=== PATIENT | male | born 1960 | race Caucasian/White ===

== ENCOUNTER 2022-04-06 07:10 | Day surgery (SDC) | payer BC ==
[~2022-04-06] VITALS: Ht 172.7 cm; Wt 77.1 kg
[2022-04-06 09:39] VITALS: BP 132/69
== END 2022-04-06 09:33 | disposition home or self-care (01) | DRG 951 ==
LOC: ENDO 07:10 → ORM 09:30 → ENDO 09:33
PROVIDERS: ATTEND Surgery
PROC: 0DBN8ZX Excision of Sigmoid Colon, Via Natural or Artificial Opening Endoscopic, Diagnostic (ICD-10-PCS; principal; 2022-04-06)
DX: Z12.11 Encounter for screening for malignant neoplasm of colon (principal); K63.5 Polyp of colon; K57.30 Diverticulosis of large intestine without perforation or abscess without bleeding; K64.8 Other hemorrhoids; Z86.010 Personal history of colon polyps

== ENCOUNTER 2024-06-19 11:14 | Emergency (ER) | payer OTHER ==
[~2024-06-19] VITALS: Ht 172.7 cm; Wt 82.0 kg
[2024-06-19 12:25] VITALS: BP 195/90
[2024-06-19] MEDS ORDERED: LIDOcaine HCl 1% (Local Anesth.) 20 ML VIAL STI ONE (12:25)
[2024-06-19] MEDS ORDERED: POVIDONE IODINE 0.5 OZ/BTL TOP ONE (12:25)
[2024-06-19] MEDS ORDERED: Diph, Acellular Pertussis, Tet 0.5 ML/VIAL (Tdap) SDV IM ONE (12:25)
[2024-06-19 12:31] VITALS: BP 169/78
[2024-06-19 12:46] VITALS: BP 168/67
[2024-06-19 13:01] VITALS: BP 157/74
[2024-06-19] MEDS ORDERED: KEFLEX500 MG PO (13:16)
[2024-06-19 13:44] VITALS: BP 168/67
== END 2024-06-19 13:57 | disposition home or self-care (01) | DRG 605 ==
LOC: ED 11:14
PROC: 0HQDXZZ Repair Right Lower Arm Skin, External Approach (ICD-10-PCS; principal; 2024-06-19)
DX: S51.011A Laceration without foreign body of right elbow, initial encounter (principal); W11.XXXA Fall on and from ladder, initial encounter; Y92.89 Other specified places as the place of occurrence of the external cause; Y99.0 Civilian activity done for income or pay
CPT/HCPCS: 90715

== ENCOUNTER 2024-06-27 11:18 | Emergency (ER) | payer OTHER ==
[~2024-06-27] VITALS: Ht 172.7 cm; Wt 77.1 kg
[~2024-06-27 11:18] MED LIST: KEFLEX500 MG PO
== END 2024-06-27 12:45 | disposition home or self-care (01) | DRG 950 ==
LOC: ED 11:18
DX: S51.011D Laceration without foreign body of right elbow, subsequent encounter (principal); X58.XXXD Exposure to other specified factors, subsequent encounter